=== PATIENT | male | born 1970 ===

== ENCOUNTER 2018-06-15 20:14 | Emergency (ER) | payer OTHER ==
[~2018-06-15] VITALS: Ht 182.9 cm; Wt 102.3 kg
[2018-06-15] MEDS ORDERED: OXYcodone/APAP 5/325MG TABLET ONE (20:36)
[2018-06-15] MEDS ORDERED: SODIUM CHLORIDE 0.9% 1,000ML IVBOLUS ONE (21:00)
[2018-06-15] MEDS ORDERED: OXYcodone/APAP 5/325MG TABLET PO ONE (21:00)
[2018-06-15 21:21] VITALS: BP 134/93
== END 2018-06-15 21:57 | disposition home or self-care (01) ==
LOC: ED 21:51
DX: F11.23 Opioid dependence with withdrawal (principal); R10.31 Right lower quadrant pain; R10.32 Left lower quadrant pain; R19.7 Diarrhea, unspecified; R11.2 Nausea with vomiting, unspecified; F17.200 Nicotine dependence, unspecified, uncomplicated
CPT/HCPCS: 96360; 99284; J7030